=== PATIENT | male | born 1955 | race Caucasian/White ===

== ENCOUNTER 2018-02-09 08:27 | Observation (INO) | payer BC, OTHER ==
[2018-02-07 14:26] LABS: MEAN CORPUSCULAR HEMOGLOBIN 29.7 pg (27.5-34.5); MEAN CORPUSCULAR HGB CONC 32.9 g/dL (33.2-36.2); MEAN CORPUSCULAR VOLUME 90.2 fL (81-97); MEAN PLATELET VOLUME 8.9 fL (7.4-10.4); PLATELET COUNT 366 x10^3/uL (130-400); RED CELL DISTRIBUTION WIDTH 14.6 % (9.4-14.8)
[2018-02-07 14:38] VITALS: BP 125/84
[2018-02-07 14:39] LABS: ALBUMIN 3.2 g/dL (3.4-5.0); ANION GAP 3 mmol/L (5-15); CALCIUM 8.9 mg/dL (8.5-10.1); CHLORIDE 101 mmol/L (98-107)
[2018-02-07 14:45] LABS: ALANINE AMINOTRANSFERASE 22 U/L (12-78); ALKALINE PHOSPHATASE 98 U/L (45-117); BILIRUBIN,TOTAL 0.7 mg/dL (0.2-1.0); CREATININE 0.79 mg/dL (0.7-1.3); TOTAL PROTEIN 7.5 g/dL (6.4-8.2)
[2018-02-07 15:00] LABS: BASOPHILS # (AUTO) 0.11 x10^3/uL (0-0.1); BASOPHILS % (AUTO) 1 % (0-1); EOSINOPHILS # (AUTO) 0.24 x10^3/uL (0-0.4); EOSINOPHILS % (AUTO) 2 % (1-7); LYMPHOCYTES # (AUTO) 1.74 x10^3/uL (1-3.4); LYMPHOCYTES % (AUTO) 12 % (22-44); MD SCAN; MONOCYTES # (AUTO) 1.57 x10^3/uL (0.2-0.8); MONOCYTES % (AUTO) 11 % (2-9); NEUTROPHILS # (AUTO) 11.12 x10^3/uL (1.8-6.8); NEUTROPHILS % (AUTO) 75 % (42-75)
[~2018-02-09] VITALS: Ht 185.4 cm; Wt 88.2 kg
[~2018-02-09 08:27] MED LIST: APIX5TAB PO; BUPIVACAINE/PF 0.5% ONE; DIGO250T PO; DILT360C26 PO; HYDR-3342 PO; LORA0.5T PO; LOSA100T6 PO; METO-95 PO
[2018-02-09] MEDS ORDERED: LACTATED RINGERS 1,000 ML IV SCH (08:56)
[2018-02-09] MEDS ORDERED: LIDOCAINE-MPF 1%, 2ML INFIL ONE (09:00)
[2018-02-09] MEDS ORDERED: GABAPENTIN 300 MG CAPSULE ONE (09:08)
[2018-02-09] MEDS ORDERED: OXYcodone IR 5MG TABLET ONE (09:09)
[2018-02-09] MEDS ORDERED: ACETAMINOPHEN 500 MG TABLET ONE ×2 (09:10)
[2018-02-09] MEDS ORDERED: OXYcodone IR 5MG TABLET PO ONE (09:30)
[2018-02-09] MEDS ORDERED: ACETAMINOPHEN 500 MG TABLET PO ONE (09:30)
[2018-02-09] MEDS ORDERED: GABAPENTIN 300 MG CAPSULE PO ONE (09:30)
[2018-02-09] MEDS ORDERED: FENTANYL PF 250 MCG/5ML ONE (12:48)
[2018-02-09] MEDS ORDERED: MIDAZOLAM 1 MG/ML, 2ML ONE (12:48)
[2018-02-09] MEDS ORDERED: ONDANSETRON 2MG/ML, 2ML ONE ×2 (12:50→13:34)
[2018-02-09] MEDS ORDERED: ROCURONIUM 10 MG/ML,10ML ONE (12:50)
[2018-02-09] MEDS ORDERED: EPINEPHRINE 1 MG/ML, 1ML INFIL ONE (13:24)
[2018-02-09] MEDS ORDERED: ALBUTEROL/IPRATROPIUM 2.5MG/0.5MG, 3 ML NPPB PRN (13:30)
[2018-02-09] MEDS ORDERED: hydrALAzine 20 MG/ML, 1ML IV PRN (13:30)
[2018-02-09] MEDS ORDERED: LABETALOL 5MG/ML, 20ML IV PRN (13:30)
[2018-02-09] MEDS ORDERED: PROMETHAZINE 25 MG/ML, 1ML IV PRN (13:30)
[2018-02-09] MEDS ORDERED: OXYcodone 5 MG/5 ML ORAL.SOL UDC PO PRN (13:30)
[2018-02-09] MEDS ORDERED: DIAZEPAM 5 MG/ML, 2ML IVPush PRN (13:30)
[2018-02-09] MEDS ORDERED: METOCLOPRAMIDE 5 MG/ML, 2ML IV PRN (13:30)
[2018-02-09] MEDS ORDERED: ALBUTEROL SULFATE 2.5 MG/3 ML NPPB PRN (13:30)
[2018-02-09] MEDS ORDERED: MIDAZOLAM 1 MG/ML, 2ML IV PRN (13:30)
[2018-02-09] MEDS ORDERED: LORazepam 2 MG/ML, 1ML IVPush PRN ×2 (13:30→14:00)
[2018-02-09] MEDS ORDERED: morphine SULFATE 10 MG/ML, 1ML IV PRN (13:30)
[2018-02-09] MEDS ORDERED: FENTANYL PF 100 MCG/2ML IV PRN (13:30)
[2018-02-09] MEDS ORDERED: MEPERIDINE/PF 25MG/0.5ML IVPush PRN (13:30)
[2018-02-09] MEDS ORDERED: ONDANSETRON 2MG/ML, 2ML IVPush PRN ×2 (13:30→14:00)
[2018-02-09] MEDS ORDERED: PROPOFOL 10 MG/ML, 20ML ONE (13:34)
[2018-02-09] MEDS ORDERED: CEFAZOLIN 1,000 MG ONE (13:34)
[2018-02-09] MEDS ORDERED: GLYCOPYRROLATE 0.2MG/1ML, 5ML ONE (13:34)
[2018-02-09] MEDS ORDERED: NEOSTIGMINE 1 MG/ML, 10ML ONE (13:34)
[2018-02-09] MEDS ORDERED: SUCCINYLCHOLINE 20 MG/ML, 10ML ONE (13:34)
[2018-02-09] MEDS ORDERED: DEXAMETHASONE 4 MG/ML, 1ML ONE (13:34)
[2018-02-09] MEDS: LACTATED RINGERS 1,000 ML IV SCH (13:43)
[2018-02-09] MEDS: FAMOTIDINE 20 MG TABLET PO SCH (14:00)
[2018-02-09] MEDS ORDERED: hydrALAzine 20 MG/ML, 1ML IVPush PRN (14:00)
[2018-02-09] MEDS ORDERED: LORazepam 1MG TABLET PO PRN (14:00)
[2018-02-09] MEDS ORDERED: ACETAMINOPHEN 650 MG SUPP PR PRN (14:00)
[2018-02-09] MEDS ORDERED: ACETAMINOPHEN 325 MG TABLET PO PRN (14:00)
[2018-02-09] MEDS ORDERED: morphine SULFATE 10 MG/ML, 1ML IVPush PRN (14:00)
[2018-02-09] MEDS ORDERED: DIPHENHYDRAMINE 25 MG CAPSULE PO PRN (14:00)
[2018-02-09] MEDS ORDERED: FAMOTIDINE 20 MG/2 ML IVPush SCH (14:00)
[2018-02-09] MEDS ORDERED: ENALAPRILAT 1.25 MG/ML, 2ML IVPush PRN (14:00)
[2018-02-09] MEDS ORDERED: DIPHENHYDRAMINE 50 MG/ML, 1ML IVPush PRN (14:00)
[2018-02-09] MEDS ORDERED: OXYcodone 5 MG/5 ML ORAL.SOL UDC ONE (14:36)
[2018-02-09] MEDS: FENTANYL PF 100 MCG/2ML IVPush PRN ×2 (14:49→15:07)
[2018-02-09 15:35] VITALS: BP 98/70
[2018-02-09] MEDS: HYDROcodone/APAP 5/325 TABLET PO PRN (18:30)
[2018-02-09 19:15] VITALS: BP 112/71
[2018-02-10 00:19] VITALS: BP 121/81
[2018-02-10] MEDS: HYDROcodone/APAP 5/325 TABLET PO PRN ×3 (02:29→12:40)
[2018-02-10] MEDS: LACTATED RINGERS 1,000 ML IV SCH (02:30)
[2018-02-10 04:49] LABS: BASOPHILS # (AUTO) 0.03 x10^3/uL (0-0.1); BASOPHILS % (AUTO) 0 % (0-1); EOSINOPHILS % (AUTO) 0 % (1-7); LYMPHOCYTES # (AUTO) 0.75 x10^3/uL (1-3.4); LYMPHOCYTES % (AUTO) 5 % (22-44); MD NO; MEAN CORPUSCULAR HGB CONC 32.5 g/dL (33.2-36.2); MEAN CORPUSCULAR VOLUME 92.3 fL (81-97); MEAN PLATELET VOLUME 8.9 fL (7.4-10.4); MONOCYTES # (AUTO) 0.88 x10^3/uL (0.2-0.8); MONOCYTES % (AUTO) 6 % (2-9); NEUTROPHILS % (AUTO) 89 % (42-75); PLATELET COUNT 318 x10^3/uL (130-400); RED BLOOD COUNT 4.79 x10^6/uL (4.38-5.82); RED CELL DISTRIBUTION WIDTH 14.4 % (9.4-14.8)
[2018-02-10 05:18] LABS: ANION GAP 4 mmol/L (5-15); CALCIUM 8.4 mg/dL (8.5-10.1); CHLORIDE 101 mmol/L (98-107)
[2018-02-10 05:21] LABS: CREATININE 0.74 mg/dL (0.7-1.3)
[2018-02-10] MEDS: FAMOTIDINE 20 MG TABLET PO SCH (08:00)
[2018-02-10 08:26] VITALS: BP 156/108
[2018-02-10] MEDS ORDERED: ENOXAPARIN 40 MG/0.4 ML SQ SCH (09:00)
[2018-02-10] MEDS ORDERED: DIGOXIN 0.25 MG TABLET PO SCH (09:00)
[2018-02-10] MEDS ORDERED: DILTIAZEM CD 180 MG CAP.ER.24H PO SCH (09:00)
[2018-02-10] MEDS ORDERED: METOPROLOL SUCCINATE 100 MG TAB.ER.24H PO SCH (09:00)
[2018-02-10] MEDS ORDERED: LOSARTAN 50MG TABLET PO SCH (09:00)
[2018-02-10] MEDS ORDERED: PNEUMOCOCCAL 23 VACCINE IM-VACC ONE (11:00)
== END 2018-02-10 16:21 | disposition home or self-care (01) ==
LOC: OUT 08:27 → EDSTATUS 10:00 → ORIP 13:43 → 3NW 14:49
PROVIDERS: ADMIT Thoracic Surgery (Cardiothoracic Vascular Surgery); ATTEND Thoracic Surgery (Cardiothoracic Vascular Surgery)
DX: R91.8 Other nonspecific abnormal finding of lung field (principal); I10 Essential (primary) hypertension; I48.91 Unspecified atrial fibrillation; E78.5 Hyperlipidemia, unspecified; F10.10 Alcohol abuse, uncomplicated; I51.89 Other ill-defined heart diseases; Z82.5 Family history of asthma and other chronic lower respiratory diseases; Z82.49 Family history of ischemic heart disease and other diseases of the circulatory system
CPT/HCPCS: 32608; 36415; 71045; 71046; 80048; 80053; 85025; 86850; 86900; 88305; 88341; 88342; 90471; 90732; 93005; C1729; C1760; G0378; J0171; J0330; J0690; J1100; J2250; J2405; J2704; J2710; J3010; J3490; J7120; G0461

== ENCOUNTER → 2018-02-18 | Outpatient (CLI) | payer OTHER ==
[~2018-02-18] MED LIST changes: -BUPIVACAINE/PF 0.5% ONE
== END | disposition home or self-care (01) ==
LOC: PETCFH 10:06
PROVIDERS: ATTEND Internal Medicine Hematology & Oncology
DX: C34.90 Malignant neoplasm of unspecified part of unspecified bronchus or lung (principal); D47.02 Systemic mastocytosis; D47.01 Cutaneous mastocytosis; J90 Pleural effusion, not elsewhere classified; R59.1 Generalized enlarged lymph nodes
CPT/HCPCS: 78815; A9552

== ENCOUNTER → 2018-02-23 | Outpatient (CLI) | payer OTHER ==
[~2018-02-23] MED LIST changes: +GADOBUTROL 10 MMOL/10 ML PFS ONE
== END | disposition home or self-care (01) ==
LOC: RAD 16:48
PROVIDERS: ATTEND Internal Medicine Hematology & Oncology
DX: R93.0 Abnormal findings on diagnostic imaging of skull and head, not elsewhere classified (principal); C34.90 Malignant neoplasm of unspecified part of unspecified bronchus or lung
CPT/HCPCS: 70553; A9585

== ENCOUNTER → 2018-03-10 | Outpatient (CLI) | payer OTHER ==
[~2018-03-10] MED LIST changes: -GADOBUTROL 10 MMOL/10 ML PFS ONE; +GADOBUTROL 10 MMOL/10 ML VIAL ONE
== END | disposition home or self-care (01) ==
LOC: CFH 10:35
PROVIDERS: ATTEND Internal Medicine Hematology & Oncology
DX: G31.9 Degenerative disease of nervous system, unspecified (principal); J84.10 Pulmonary fibrosis, unspecified; R89.9 Unspecified abnormal finding in specimens from other organs, systems and tissues
CPT/HCPCS: 70553; A9585